=== PATIENT | male | born 1975 | race Caucasian/White ===

== ENCOUNTER 2016-10-19 05:20 | Emergency (ER) | payer SELFPAY ==
[2016-10-19] MEDS ORDERED: ASPIRIN 81 MG TABLET, CHEWABLE PO ONE (05:50)
[2016-10-19 06:32] LABS: ABSOLUTE BASOPHILS # (AUTO) 0.1 10^3/uL (0.0-0.2); ABSOLUTE EOSINOPHILS # (AUTO) 0.2 10^3/uL (0.0-0.6); ABSOLUTE LYMPHOCYTES (AUTO) 1.9 10^3/uL (0.5-4.7); ABSOLUTE MONOCYTES (AUTO) 0.8 10^3/uL (0.1-1.4); ABSOLUTE NEUT (AUTO) 3.8 10^3/uL (1.7-8.2); BASOPHILS % (AUTO) 1.1 % (0-2); EOSINOPHILS % (AUTO) 2.4 % (0-6); HEMOGLOBIN 13.2 g/dL (13.5-17.0); HGB HCT DIFFERENCE -1.4; LYMPHOCYTES % (AUTO) 28.2 % (13-45); MEAN CORPUSCULAR HEMOGLOBIN 29.6 pg (27.0-33.4); MEAN CORPUSCULAR HGB CONC 32.2 g/dL (32.0-36.0); MEAN CORPUSCULAR VOLUME 92 fl (80-97); MONOCYTES % (AUTO) 12.3 % (3-13); RED BLOOD COUNT 4.45 10^6/uL (4.35-5.55); WHITE BLOOD COUNT 6.7 10^3/uL (4.0-10.5)
[2016-10-19] MEDS ORDERED: KETOROLAC TROMETHAMINE INJ/PF 30 MG/1 ML SDV IV ONE (07:25)
[2016-10-19] MEDS ORDERED: PREDNISONE 20 MG TABLET PO ONE (07:25)
--- NOTE | 2016-10-19 07:26 | ER Document Report ---
ED Cardiac - General Mode of Arrival: Ambulatory Information source: Patient TRAVEL OUTSIDE OF THE [place] IN LAST 30 DAYS: No - HPI Patient complains to provider of: Chest tightness Associated symptoms: Other - See above <ERNESTO CHATMAN - Last Filed: 10/19/16 07:29> <BREE SHERIDAN - Last Filed: 10/19/16 10:08> - General Chief Complaint: Chest Tightness Stated Complaint: RIB PAIN,PALPITATIONS Notes: Patient is a 40 year old male, with a past medical history including DVT and PE , who presents to the emergency department complaining of chest tightness onset this morning. Patient reports he woke up and felt as though his lungs were tight and that his heart was racing. Patient had multiple PEs in August and was told to come to the ED if he felt anything like his current symptoms. Patient states he still gets intermittent swelling in his left leg from the DVT. Patient also complains of a cough for the past few days. Patient states he has not received a flu shot this season and was planning on getting one next Saturday. Patient is currently on Xarelto. PCP: [facility] (ERNESTO CHATMAN) - Related Data Allergies/Adverse Reactions: No Known Allergies Allergy (Verified 10/19/16 06:42) Home Medications: Current Home Medications Rivaroxaban [Xarelto] 1 tab PO DAILY 10/19/16 [History] Past Medical History - General Information source: Patient - Social History Smoking Status: Former Smoker Chew tobacco use (# tins/day): No Frequency of alcohol use: None Drug Abuse: None Family History: Reviewed & Not Pertinent Patient has suicidal ideation: No Patient has homicidal ideation: No - Past Medical History Cardiac Medical History: Reports: Hx DVT, Hx Pulmonary Embolism Past Surgical History: Reports: Hx Appendectomy, Other - Skin left - Immunizations Hx Diphtheria, Pertussis, Tetanus Vaccination: Yes <ERNESTO CHATMAN - Last Filed: 10/19/16 07:29> Review of Systems - Review of Systems Constitutional: No symptoms reported EENT: No symptoms reported Cardiovascular: See HPI, Heart racing, Other - Chest tightness Respiratory: See HPI, Cough Gastrointestinal: No symptoms reported Genitourinary: No symptoms reported Male Genitourinary: No symptoms reported Musculoskeletal: No symptoms reported Skin: No symptoms reported Hematologic/Lymphatic: No symptoms reported Neurological/Psychological: No symptoms reported -: Yes All other systems reviewed and negative <ERNESTO CHATMAN - Last Filed: 10/19/16 07:29> Physical Exam - Vital signs Interpretation: Normal - General General appearance: Appears well, Alert - HEENT Head: Normocephalic, Atraumatic Pharynx: Normal - Respiratory Respiratory status: No respiratory distress Chest status: Nontender Breath sounds: Other - Coarse Chest palpation: Normal - Cardiovascular Rhythm: Regular Heart sounds: Normal auscultation Murmur: No - Back Back: Normal, Nontender - Extremities General upper extremity: Normal inspection General lower extremity: Normal inspection - Neurological Neuro grossly intact: Yes Cognition: Normal Orientation: AAOx4 [place] Coma Scale Eye Opening: Spontaneous Renaldo Coma Scale Verbal: Oriented Renaldo Coma Scale Motor: Obeys Commands Renaldo Coma Scale Total: 15 Speech: Normal - Psychological Associated symptoms: Normal affect, Normal mood - Skin Skin Temperature: Warm Skin Moisture: Dry Skin Color: Normal <ERNESTO CHATMAN - Last Filed: 10/19/16 07:29> Course - Laboratory Result Diagrams: 10/19/16 06:20 10/19/16 06:20 <ERNESTO CHATMAN - Last Filed: 10/19/16 07:29> - Laboratory Result Diagrams: 10/19/16 06:20 10/19/16 08:57 - Diagnostic Test Radiology reviewed: Image reviewed, Reports reviewed - Chest x-ray is unremarkable. - EKG Interpretation by Nv EKG shows normal: Sinus rhythm, [place], Intervals, QRS Complexes, ST-T Waves Rate: Normal - 81 Rhythm: NSR <BREE SHERIDAN - Last Filed: 10/19/16 10:08> - Re-evaluation Re-evalutation: 10/19/16 10:06 The patient's d-dimer is undetectable making the possibility of recurrent pulmonary emboli extremely unlikely. It appeared to patient's symptoms are all from his recent upper respiratory tract infection that he has. (BREE SHERIDAN) - Vital Signs Vital signs: Temp Pulse Resp BP Pulse Ox 97.5 F 93 17 125/72 97 10/19/16 08:06 10/19/16 05:25 10/19/16 08:06 10/19/16 05:25 10/19/16 08:06 (ERNESTO CHATMAN) (BREE SHERIDAN) - Laboratory Laboratory results interpreted by me: 10/19/16 10/19/16 10/19/16 06:20 08:57 08:57 Hgb 13.2 L PT 16.5 H Creatine Kinase 376 H Albumin 3.4 L (ERNESTO CHATMAN) (BREE SHERIDAN) Discharge <ERNESTO CHATMAN - Last Filed: 10/19/16 07:29> <BREE SHERIDAN - Last Filed: 10/19/16 10:08> - Discharge Clinical Impression: URI (upper respiratory infection) Qualifiers: URI type: unspecified viral URI Qualified Code(s): J06.9 - Acute upper respiratory infection, unspecified; B97.89 - Other viral agents as the cause of diseases classified elsewhere Condition: Stable Disposition: HOME, SELF-CARE Additional Instructions: Upper Respiratory Illness: You have a viral infection of the respiratory passages -- a "cold." This common infection causes nasal congestion, drainage, and often sore throat and cough. It is caused by a virus and is highly contagious. The disease usually lasts a week or more, though the worst symptoms are usually over in 3 or 4 days. There is no "cure" for the viral infection -- it must run its course. If there is a complication, such as bacterial infection in the nose, sinuses, middle ear, or bronchial tubes, antibiotics may be required, but antibiotics won 't affect the virus. If you smoke, you should STOP!! Drink plenty of fluids. A humidifier may help. An expectorant medication or decongestant may make you more comfortable. Use acetaminophen or ibuprofen for fever or aches. See the doctor if fever persists over two or three days, if there is any significant worsening of your symptoms, or if you simply fail to improve as expected. Scribe Attestation: 10/19/16 10:08 I personally performed the services described in the documentation, reviewed and edited the documentation which was dictated to the scribe in my presence, and it accurately records my words and actions. (BREE SHERIDAN) Scribe Documentation <ERNESTO CHATMAN - Last Filed: 10/19/16 07:29> <BREE SHERIDAN - Last Filed: 10/19/16 10:08> - Scribe Written by Scribe:: BREE SHERIDAN MD, SCRIBE 10/19/16 1006 Acting as scribe for: Dr. Sheridan (ERNESTO CHATMAN) (BREE SHERIDAN)
[2016-10-19] MEDS ORDERED: INFLUENZA ADLT QUAD (36MOS+) 2016-17 VAC 0.5 ML SYR IM ONE (08:26)
[2016-10-19 09:22] LABS: PROTHROMBIN TIME 16.5 SEC (11.4-15.4)
[2016-10-19 09:40] LABS: D-DIMER < 0.27 ug/mL (0.00-0.50)
[2016-10-19 09:47] LABS: ALANINE AMINOTRANSFERASE 45 U/L (21-72); ALBUMIN 3.4 g/dL (3.5-5.0); ALKALINE PHOSPHATASE 79 U/L (38-126); ANION GAP 8 (5-19); ASPARTATE AMINO TRANSFERASE 39 U/L (17-59); BILIRUBIN,TOTAL 0.4 mg/dL (0.2-1.3); BLOOD UREA NITROGEN 15 mg/dL (7-20); CARBON DIOXIDE 27 mmol/L (22-30); CHLORIDE 104 mmol/L (98-107); CREATINE KINASE 376 U/L (55-170); CREATININE RESULT 0.65 mg/dL (0.52-1.25); GLUCOSE 89 mg/dL (75-110); POTASSIUM 4.2 mmol/L (3.6-5.0); SODIUM 139.2 mmol/L (137-145); TOTAL PROTEIN 6.6 g/dL (6.3-8.2)
[2016-10-19 09:57] LABS: CREATINE KINASE MB 4.06 ng/mL (<4.55)
[2016-10-19 09:58] LABS: TROPONIN I < 0.012 ng/mL
[2016-10-19 10:31] VITALS: BP 125/83
--- NOTE | 2016-10-19 14:56 | EKG REPORT ---
SEVERITY:- NORMAL ECG - SINUS RHYTHM : Confirmed by: Benigno Perkins 19-Oct-2016 14:56:13
== END 2016-10-19 11:13 | disposition home or self-care (01) ==
LOC: ER 05:20
DX: J06.9 Acute upper respiratory infection, unspecified (principal); B97.89 Other viral agents as the cause of diseases classified elsewhere; R07.89 Other chest pain; I82.402 Acute embolism and thrombosis of unspecified deep veins of left lower extremity; R05 Cough; Z79.01 Long term (current) use of anticoagulants; Z86.711 Personal history of pulmonary embolism; Z87.891 Personal history of nicotine dependence
CPT/HCPCS: 93005; 99285; 96374; 36415; 82553; 82550; 85025; 85610; 80053; 84484; 85379; 71010; 93010; J1885; J7512

== ENCOUNTER 2017-08-23 08:06 | Emergency (ER) | payer SELFPAY ==
--- NOTE | 2017-08-23 08:22 | ER Document Report ---
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 It now radiates to his lateral anterior left thigh. No saddle anesthesia. No fever. No IV drug use. No history of back injury. Associated Symptoms: None Exacerbated by: Movement Relieved by: Denies Similar symptoms previously: No Recently seen / treated by doctor: No - ROS ROS below otherwise negative: Yes Systems Reviewed and Negative: Yes All other systems reviewed and negative - MUSCULOSKELETAL Musculoskeletal: REPORTS: Extremity pain - L leg Past Medical History - General Information source: Patient - Social History Smoking Status: Current Every Day Smoker Chew tobacco use (# tins/day): No Frequency of alcohol use: Occasional Drug Abuse: Marijuana Lives with: Family Family History: Reviewed & Not Pertinent Patient has suicidal ideation: No Patient has homicidal ideation: No - Past Medical History Cardiac Medical History: Reports: Hx DVT, Hx Pulmonary Embolism Renal/ Medical History: Denies: Hx Peritoneal Dialysis Past Surgical History: Reports: Hx Appendectomy, Other - Skin left - Immunizations Hx Diphtheria, Pertussis, Tetanus Vaccination: Yes Vertical Provider Document - CONSTITUTIONAL Agree With Documented VS: Yes Exam Limitations: No Limitations General Appearance: No Apparent Distress - INFECTION CONTROL TRAVEL OUTSIDE OF THE [place] IN LAST 30 DAYS: No - HEENT HEENT: Normocephalic - NECK Neck: Supple - RESPIRATORY Respiratory: Breath Sounds Normal, No Respiratory Distress O2 Sat by Pulse Oximetry: 100 - CARDIOVASCULAR Cardiovascular: Regular Rate, Regular Rhythm - GI/ABDOMEN Gastrointestinal: Abdomen Soft, Abdomen Non-Tender - BACK Back: Normal Inspection Notes: tender over left SI joint, supine position with rolled towel under left SI reduced pain to 4/5. Meds to 3/5. - MUSCULOSKELETAL/EXTREMETIES Musculoskeletal/Extremeties: CARMEN ALMAZAN - NEURO Level of Consciousness: Awake, Alert, Appropriate Motor/Sensory: No Motor Deficit, No Sensory Deficit Deep Tendon Reflexes: Absent - bilateral unable to obtain any reflexed - DERM Integumentary: Warm, Dry Course - Re-evaluation Re-evalutation: 08/23/17 09:30 Pain level now 3/5 with Toradol, Flexeril, Tylenol. Referring patient to chiropractor. - Vital Signs Vital signs: Temp Pulse Resp BP Pulse Ox 97.7 F 75 18 102/71 100 08/23/17 08:07 08/23/17 08:07 08/23/17 08:07 08/23/17 08:07 08/23/17 08:07 Discharge - Discharge Clinical Impression: Left sacroiliitis Condition: Good Disposition: HOME, SELF-CARE Instructions: Acetaminophen, Chiropractor, Ibuprofen (General) ([facility]), Low Back Pain ([facility]), Muscle Relaxers ([facility]), Toradol Injection ([facility]), Warm Packs ([facility]) Additional Instructions: warm compress do not lift or bend from the waist for a least a week see the chiropractor to er if worse back stretches as discussed, list given to you Please complete the patient satisfaction survey if you get one, and return it.. If you do not receive a survey, then you can go to the [facility] website, [email or web address] and place your comments about your very good care. Thank you very much. It was a pleasure being your medical provider today. Prescriptions: Ibuprofen [Motrin 800 mg Tablet] 800 mg PO Q8HP PRN #30 tablet PRN Reason: Cyclobenzaprine HCl [Flexeril 10 Mg Tablet] 10 mg PO TIDP PRN #20 tablet PRN Reason: Referrals: [facility] [Primary Care Provider] - Follow up as needed [facility] [CHIROPRACTOR] - Follow up as needed
[2017-08-23] MEDS ORDERED: ACETAMINOPHEN 325 MG TABLET PO ONE (08:42)
[2017-08-23] MEDS ORDERED: KETOROLAC TROMETHAMINE 60 MG/2 ML SDV IM ONE (08:42)
[2017-08-23] MEDS ORDERED: CYCLOBENZAPRINE HCL 10 MG TABLET PO ONE (08:43)
[2017-08-23 09:57] VITALS: BP 110/69
== END 2017-08-23 09:57 | disposition home or self-care (01) ==
LOC: ER 08:06
DX: M46.1 Sacroiliitis, not elsewhere classified (principal); M54.5 Low back pain; M79.652 Pain in left thigh; F17.200 Nicotine dependence, unspecified, uncomplicated
CPT/HCPCS: 99283; 96372; J1885